=== PATIENT | male | born 1955 | race Caucasian/White ===

== ENCOUNTER 2018-01-14 14:14 | Outpatient (CLI) | payer MEDICAID, MEDICARE ==
[~2018-01-14] VITALS: Ht 172.7 cm; Wt 97.1 kg
[2018-01-14 14:41] LABS: TOTAL HEMOGLOBIN 16.4 G/dl (14.0-18.0)
[2018-01-14] MEDS ORDERED: albuterol 2.5 MG/3 ML nebule NEB ONE (14:55)
== END 2018-01-14 23:59 | disposition home or self-care (01) ==
LOC: RT 14:14
PROVIDERS: ATTEND Internal Medicine Cardiovascular Disease
DX: R06.02 Shortness of breath (principal); Z79.899 Other long term (current) drug therapy
CPT/HCPCS: 85018; 94010; 94727; 94729; 94760